=== PATIENT | female | born 1975 | race Two or more races ===

== ENCOUNTER → 2017-08-08 | Outpatient (CLI) | payer OTHER ==
[2017-08-08 16:57] LABS: BASOPHILS # (AUTO) 0.03 x10^3/uL (0-0.1); BASOPHILS % (AUTO) 0 % (0-1); EOSINOPHILS # (AUTO) 0.22 x10^3/uL (0-0.4); EOSINOPHILS % (AUTO) 3 % (1-7); LYMPHOCYTES % (AUTO) 34 % (22-44); MD NO; MEAN CORPUSCULAR HEMOGLOBIN 29.6 pg (27.0-34.8); MEAN CORPUSCULAR HGB CONC 34.2 g/dL (32.4-35.8); MEAN CORPUSCULAR VOLUME 86.6 fL (80-100); MEAN PLATELET VOLUME 6.8 fL (7.4-10.4); MONOCYTES % (AUTO) 6 % (2-9); NEUTROPHILS # (AUTO) 4.96 x10^3/uL (1.8-6.8); NEUTROPHILS % (AUTO) 58 % (42-75); PLATELET COUNT 318 x10^3/uL (130-400); RED CELL DISTRIBUTION WIDTH 11.9 % (9.6-15.2)
== END | disposition home or self-care (01) ==
LOC: LAB 16:31
PROVIDERS: ATTEND Obstetrics & Gynecology Female Pelvic Medicine and Reconstructive Surgery
DX: N92.4 Excessive bleeding in the premenopausal period (principal)
CPT/HCPCS: 36415; 84443; 85025

== ENCOUNTER 2020-04-26 23:42 | Inpatient (IN) | payer BC ==
[~2020-04-26] VITALS: Ht 154.9 cm; Wt 69.0 kg
[2020-04-27] MEDS ORDERED: SODIUM CHLORIDE FLUSH 10ML SYR IVF ONE (00:30)
--- NOTE | 2020-04-27 00:48 | NUR ---
pt to room from lobby
[2020-04-27 01:07] LABS: BASOPHILS % (AUTO) 0 % (0-1); EOSINOPHILS % (AUTO) 0 % (1-7); LYMPHOCYTES % (AUTO) 9 % (22-44); MEAN CORPUSCULAR HEMOGLOBIN 29.5 pg (27.0-34.8); MEAN CORPUSCULAR HGB CONC 33.7 g/dL (32.4-35.8); MEAN PLATELET VOLUME 6.8 fL (7.4-10.4); MONOCYTES % (AUTO) 3 % (2-9); NEUTROPHILS % (AUTO) 89 % (42-75); PLATELET COUNT 339 x10^3/uL (130-400); RED BLOOD COUNT 4.96 x10^6/uL (3.82-5.3); RED CELL DISTRIBUTION WIDTH 12.8 % (9.6-15.2)
[2020-04-27 01:08] LABS: MD NO
[2020-04-27 01:15] LABS: ALANINE AMINOTRANSFERASE 34 U/L (12-78); ALBUMIN 4.3 g/dL (3.4-5.0); ANION GAP 5 mmol/L (5-15); CALCIUM 8.9 mg/dL (8.5-10.1); CHLORIDE 106 mmol/L (98-107)
--- NOTE | 2020-04-27 01:15 | NUR ---
task RN: pt states lower abd pain that started around 1900 this evening with n/v.
[2020-04-27 01:20] LABS: ALKALINE PHOSPHATASE 91 U/L (45-117); BILIRUBIN,TOTAL 0.7 mg/dL (0.2-1.0); TOTAL PROTEIN 8.2 g/dL (6.4-8.2)
[2020-04-27 01:23] LABS: MICROSCOPIC INDICATED
[2020-04-27] MEDS ORDERED: ONDANSETRON 2MG/ML, 2ML IVPush ONE (01:30)
[2020-04-27] MEDS ORDERED: MAALOX/HYOSCYAMINE/LIDOCAINE 45 ML BTL PO ONE (01:30)
[2020-04-27] MEDS ORDERED: MORPHINE SULFATE 4 MG/ML, 1ML ONE ×3 (01:34→06:56)
[2020-04-27] MEDS ORDERED: ONDANSETRON 2MG/ML, 2ML ONE (01:34)
[2020-04-27] MEDS ORDERED: MAALOX/HYOSCYAMINE/LIDOCAINE 45 ML BTL ONE (01:35)
[2020-04-27] MEDS: MORPHINE SULFATE 4 MG/ML, 1ML IVPush PRN ×2 (01:37→03:31)
[2020-04-27] MEDS ORDERED: OMNIPAQUE 350 MG/ML, 100ML BOTTLE ONE (02:00)
--- NOTE | 2020-04-27 02:49 | NUR ---
pt back from CT. Pt much more comfortable after meds. Appears more comfortable. VS stable. Family at bedside. Needs met. Call light in reach. Will monitor.
[2020-04-27] MEDS ORDERED: SODIUM CHLORIDE 0.9% 1,000ML IVBOLUS ONE (03:00)
[2020-04-27] MEDS ORDERED: LIDOCAINE 2%,20 ML JEL.PF.APP MM ONE (03:25)
[2020-04-27] MEDS ORDERED: BISACODYL 10 MG SUPP PR PRN (03:30)
[2020-04-27] MEDS ORDERED: ONDANSETRON 2MG/ML, 2ML IVPush PRN (03:30)
[2020-04-27] MEDS ORDERED: POLYETHYLENE GLYCOL 17 GM PACKET PO PRN (03:30)
[2020-04-27] MEDS ORDERED: OXYcodone IR 5MG TABLET PO PRN (03:30)
[2020-04-27] MEDS ORDERED: ONDANSETRON ODT 4 MG PO PRN (03:30)
[2020-04-27] MEDS ORDERED: ACETAMINOPHEN 325 MG TABLET PO PRN (03:30)
[2020-04-27] MEDS ORDERED: DOCUSATE 100 MG CAPSULE PO PRN (03:30)
[2020-04-27] MEDS ORDERED: PROMETHAZINE 25 MG/ML, 1ML IM PRN (03:30)
[2020-04-27] MEDS ORDERED: HEPARIN 5,000 UNITS/ML, 1ML SQ SCH (03:30)
[2020-04-27] MEDS ORDERED: hydrALAzine 20 MG/ML, 1ML IVPush PRN (03:30)
[2020-04-27] MEDS ORDERED: HEPARIN 5,000 UNITS/ML, 1ML ONE (04:06)
--- NOTE | 2020-04-27 04:23 | NUR ---
Pt medicated for pain per order. NGT placed, secured to nose. Almost to second to last marking on tube. Gastric contents suctioned. Attached to low intermittent wall suction. Pt able to speak, sats remained in high 90's. Pt c/o pain in throat. Pt in no resp distress. Vitals remain stable. Family at bedside. Pt toelrated procedure well. Will monitor.
--- NOTE | 2020-04-27 05:11 | NUR ---
Pt calm in bed, resting. Denies any needs at this time. Call light in reach. Will monitor.
--- NOTE | 2020-04-27 06:01 | NUR ---
Pt calm in bed, no changes. Resting.
[2020-04-27] MEDS: morphine SULFATE 10 MG/ML, 1ML IVPush PRN ×4 (07:02→21:51)
--- NOTE | 2020-04-27 07:03 | NUR ---
REPORT FROM RIKA DAMON WITH ASSESSMENT PATIENT COMPLAINING OF THROAT PAIN (NG TUBE) -MEDICATED PER EMAR ONLY 100ML OF GASTRIC FLUID NOTED. FLUSHED WITH 30ML OF [place]KEW[place] TAP WATER PLACED ON 2L NC PRECAUTION WITH NARCOTICS HOSPITAL BED ORDERED UPDATED ON ESTIMATED POC
[2020-04-27] MEDS: D5%-0.9% NACL+KCL 20MEQ 1,000 ML IV SCH ×3 (07:30→23:38)
--- NOTE | 2020-04-27 07:41 | NUR ---
Rapid covid swab obtained per guidelines-walked to lab Pain slightly improved to 4/10 (tghroat still bothering her)-will continue to monitor
[2020-04-27 09:31] VITALS: BP 111/62
[2020-04-27] MEDS ORDERED: BENZOCAINE 20% SPRAY 0.5ML TP ONE (11:30)
[2020-04-27 16:08] VITALS: BP 110/60
[2020-04-27 17:55] VITALS: BP 105/71
[2020-04-27 18:36] VITALS: BP 94/60
[2020-04-27] MEDS: BENZOCAINE 20% SPRAY 0.5ML TP PRN (19:49)
[2020-04-28 00:35] VITALS: BP 97/64
[2020-04-28] MEDS: BENZOCAINE 20% SPRAY 0.5ML TP PRN ×3 (05:23→16:18)
[2020-04-28 05:41] LABS: BASOPHILS % (AUTO) 1 % (0-1); EOSINOPHILS % (AUTO) 3 % (1-7); LYMPHOCYTES % (AUTO) 21 % (22-44); MEAN CORPUSCULAR HEMOGLOBIN 29.6 pg (27.0-34.8); MEAN CORPUSCULAR HGB CONC 32.9 g/dL (32.4-35.8); MEAN PLATELET VOLUME 6.9 fL (7.4-10.4); MONOCYTES % (AUTO) 9 % (2-9); NEUTROPHILS % (AUTO) 66 % (42-75); PLATELET COUNT 275 x10^3/uL (130-400); RED BLOOD COUNT 4.23 x10^6/uL (3.82-5.3); RED CELL DISTRIBUTION WIDTH 12.9 % (9.6-15.2)
[2020-04-28 05:42] LABS: MD NO
[2020-04-28 05:46] LABS: ANION GAP 5 mmol/L (5-15); CHLORIDE 110 mmol/L (98-107)
[2020-04-28 05:55] LABS: ALANINE AMINOTRANSFERASE 20 U/L (12-78); ALKALINE PHOSPHATASE 60 U/L (45-117); BILIRUBIN,TOTAL 0.6 mg/dL (0.2-1.0); CHOLESTEROL, TOTAL 140 mg/dL (140-239); CREATININE 0.71 mg/dL (0.55-1.02); HDL CHOL % 33 % (28-40); HDL CHOLESTEROL (DIRECT) 46 mg/dL (40-60); LDL CHOLESTEROL,CALCULATED 73 mg/dL (54-169); LDL/HDL RATIO 1.6 (0.5-3.0); TOTAL PROTEIN 6.1 g/dL (6.4-8.2); TRIGLYCERIDES 104 mg/dL (50-200); VLDL CHOLESTEROL 21 mg/dL (0-25)
[2020-04-28 06:44] VITALS: BP 109/72
[2020-04-28] MEDS: D5%-LACTATED RINGERS 1,000 ML IV SCH ×2 (09:51→16:23)
[2020-04-28] MEDS: morphine SULFATE 10 MG/ML, 1ML IVPush PRN ×3 (10:03→21:16)
[2020-04-28 15:30] VITALS: BP 120/65
[2020-04-28 18:37] VITALS: BP 109/59
[2020-04-28] MEDS ORDERED: BENZOCAINE 20% SPRAY 0.5ML ONE ×2 (18:37→18:38)
[2020-04-28 20:43] VITALS: BP 116/68
[2020-04-29] MEDS: BENZOCAINE 20% SPRAY 0.5ML TP PRN ×3 (00:53→15:47)
[2020-04-29] MEDS: D5%-LACTATED RINGERS 1,000 ML IV SCH ×3 (00:53→17:00)
[2020-04-29 01:15] VITALS: BP 122/77
[2020-04-29] MEDS: morphine SULFATE 10 MG/ML, 1ML IVPush PRN ×2 (04:06→08:52)
[2020-04-29 05:37] LABS: BASOPHILS % (AUTO) 0 % (0-1); EOSINOPHILS % (AUTO) 3 % (1-7); LYMPHOCYTES % (AUTO) 11 % (22-44); MEAN CORPUSCULAR HEMOGLOBIN 29.9 pg (27.0-34.8); MEAN PLATELET VOLUME 6.8 fL (7.4-10.4); MONOCYTES % (AUTO) 7 % (2-9); NEUTROPHILS % (AUTO) 79 % (42-75); PLATELET COUNT 291 x10^3/uL (130-400); RED BLOOD COUNT 4.28 x10^6/uL (3.82-5.3); RED CELL DISTRIBUTION WIDTH 12.5 % (9.6-15.2)
[2020-04-29 05:47] LABS: MD NO
[2020-04-29 05:51] LABS: ANION GAP 6 mmol/L (5-15); CALCIUM 8.5 mg/dL (8.5-10.1); CHLORIDE 107 mmol/L (98-107)
[2020-04-29 05:54] LABS: CREATININE 0.59 mg/dL (0.55-1.02)
[2020-04-29 07:36] VITALS: BP 105/69
[2020-04-29 12:20] VITALS: BP 116/76
== END 2020-04-29 18:22 | disposition home or self-care (01) | DRG 390 ==
LOC: ED 23:50 → EDIP 04-27 03:26 → 3WST 04-27 10:19 → 4NE 04-27 17:46
PROVIDERS: ADMIT Internal Medicine; ATTEND Internal Medicine
DX: K56.51 Intestinal adhesions [bands], with partial obstruction (principal); E86.0 Dehydration; D72.829 Elevated white blood cell count, unspecified; Z20.822 Contact with and (suspected) exposure to COVID-19; Z83.3 Family history of diabetes mellitus; Z85.42 Personal history of malignant neoplasm of other parts of uterus; Z90.710 Acquired absence of both cervix and uterus; Z85.43 Personal history of malignant neoplasm of ovary
CPT/HCPCS: 36415; 74250; 96374; 96375; 96376; 99285; J7121; 71045; 74177; 80048; 80053; 80061; 81001; 83690; 83735; 84443; 84703; 85025; 87086; 87635; G0378; J1644; J2405; Q9967; J2270; J3480; J7030